=== PATIENT | male | born 1985 | race Caucasian/White ===

== ENCOUNTER 2017-09-12 13:39 | Emergency (ER) | payer MEDICARE ==
[2017-09-12 14:54] VITALS: BMI 25.1
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
[2017-09-12 17:24] VITALS: RESP 18
[2017-09-12 17:25] VITALS: BP 120/75; PULSE 65; TEMP 97.8; O2SAT 99
== END 2017-09-12 17:24 | disposition home or self-care (01) ==
LOC: ED 13:39 → MERGE 13:39 → ED 17:24
DX: G44.319 Acute post-traumatic headache, not intractable (principal); S02.2XXA Fracture of nasal bones, initial encounter for closed fracture; S06.0X0A Concussion without loss of consciousness, initial encounter; Y08.89XA Assault by other specified means, initial encounter; Y92.89 Other specified places as the place of occurrence of the external cause
CPT/HCPCS: 70450; 70486; 71110; 96372; 99283; J1885; J2405